=== PATIENT | male | born 1995 | race Caucasian/White ===

== ENCOUNTER 2019-11-21 12:07 | Observation (INO) ==
[2019-11-21] MEDS ORDERED: Ondansetron 4 MG/2 ML VIAL IVP ONE (12:41)
[2019-11-21] MEDS ORDERED: *HR* HYDROmorphone (PF) 1 MG/ML SYRINGE IVP ONE ×3 (12:41→15:37)
[2019-11-21] MEDS ORDERED: Lidocaine/EPI 1:100k 1% 30 ML VIAL INFILT ONE (13:44)
[2019-11-21] MEDS ORDERED: Tdap (Boostrix) Vaccine 0.5 ML SYRINGE IM ONE (16:01)
[2019-11-21] MEDS ORDERED: Acetaminophen 325 MG TABLET PO PRN ×2 (16:54→22:59)
[2019-11-21] MEDS ORDERED: Naloxone 0.4 MG/ML INJ IVP PRN ×2 (16:54→22:59)
[2019-11-21] MEDS ORDERED: *HR* Promethazine 25 MG/ML VIAL IVP PRN (18:50)
[2019-11-21] MEDS ORDERED: *HR* OxyCODONE Immed Rel 5 MG TABLET PO PRN ×2 (18:50→22:59)
[2019-11-21] MEDS ORDERED: Ondansetron 4 MG/2 ML VIAL IVP PRN (18:50)
[2019-11-21] MEDS: *HR* HYDROmorphone (PF) 1 MG/ML SYRINGE IVP PRN ×4 (19:34→20:22)
[2019-11-21] MEDS ORDERED: Bupivacaine/EPI 1:200k 0.5%PF 30 ML VIAL ONE (20:19)
[2019-11-21] MEDS ORDERED: Ondansetron 4 MG/2 ML VIAL ONE ×2 (20:21→20:34)
[2019-11-21] MEDS ORDERED: Lidocaine -MPF 2% 2 ML VIAL ONE ×2 (20:21→20:34)
[2019-11-21] MEDS ORDERED: Dexamethasone 4 MG/ML VIAL ONE ×2 (20:21→20:34)
[2019-11-21] MEDS ORDERED: *HR* Midazolam HCl 2 MG/2 ML VIAL ONE (20:21)
[2019-11-21] MEDS ORDERED: *HR* Propofol 200 MG/20 ML VIAL IVP ONE ×2 (20:22→20:34)
[2019-11-21] MEDS ORDERED: *HR* FentaNYL (PF) 100 MCG/2 ML VIAL ONE (20:34)
[2019-11-21] MEDS ORDERED: ceFAZolin 2,000 MG in 0.9 % Sodium Chloride 100 ML IVPB ONE (22:02)
[2019-11-21] MEDS ORDERED: Ringers Solution, Lactated 1,000 ML IVC SCH (22:59)
[2019-11-21] MEDS ORDERED: Ondansetron ODT 4 MG TAB.RAPDIS SL PRN (22:59)
[2019-11-21] MEDS: *HR* HYDROcodone/Acet 5/325 mg TABLET PO PRN (23:40)
[2019-11-22] MEDS ORDERED: Acetaminophen IV 1,000 MG/100 ML INFUS..BTL IVPB SCH
[2019-11-22] MEDS ORDERED: ceFAZolin 2,000 MG in 0.9 % Sodium Chloride 100 ML IVPB SCH (04:30)
[2019-11-22 05:48] LABS: Basophils % 0.1 %; Hematocrit 39.1 % (37.5-50.1); Hemoglobin 14.2 g/dL (12.9-16.9); Immature Granulocytes % 0.4 % (0-4); Lymphocytes # 1.3 K/mcL (0.6-4.6); Lymphocytes % 11.7 %; Mean Corpuscular HGB Conc 36.3 g/dL (31.6-35.5); Mean Corpuscular Hemoglobin 30.7 pg (28.0-33.3); Mean Corpuscular Volume 84.6 fL (83.0-100.0); Mean Platelet Volume 8.4 fL (9.4-12.4); Monocytes # 0.9 K/mcL (0.0-1.3); Monocytes % 7.9 %; Neutrophils # 9.2 K/mcL (1.6-8.9); Platelet Count 260 K/mcL (140-400); Red Blood Count 4.62 M/mcL (4.19-5.50); Red Cell Distribution Width 12.3 % (11.5-14.5); Segmented Neutrophils % 79.9 %; White Blood Count 11.5 K/mcL (4.3-11.1)
[2019-11-22 05:52] LABS: INR 1.3; Prothrombin Time 14.4 Seconds (9.4-12.1)
[2019-11-22 06:08] LABS: BUN/Creatinine Ratio 21 (6-26); Blood Urea Nitrogen 16 mg/dL (6-20); Carbon Dioxide 26 mEq/L (23-29); Chloride 102 mEq/L (98-107); Glucose 131 mg/dL (70-105); Osmolality,Calculated 285 (280-300); Potassium 4.3 mEq/L (3.5-5.1); Sodium 136 mEq/L (136-145); eGFR For African Americans > 60 (> 60); eGFR For Non-African Americans > 60 (> 60)
[2019-11-22 07:36] VITALS: BP 118/73
[2019-11-22] MEDS: *HR* HYDROcodone/Acet 5/325 mg TABLET PO PRN (07:40)
== END 2019-11-22 08:35 | disposition home or self-care (01) ==
LOC: EMEROOARM 12:07 → 3NENU 12:07
PROVIDERS: ADMIT Orthopaedic Surgery Hand Surgery; ATTEND Orthopaedic Surgery Hand Surgery